=== PATIENT | male | born 1995 | race Native Hawaiian/Other Pacific Islander ===

== ENCOUNTER 2018-04-25 10:34 | Emergency (ER) | payer OTHER, SELFPAY ==
[2018-04-25 10:41] VITALS: BP 125/62; PULSE 81; RESP 16; TEMP 36.3; O2SAT 100
--- NOTE | 2018-04-25 10:58 | PC.NURSE ---
pt reports, pt has been in [facility] for 2 months, mission. pt developed generalized rash for one week, rtr from [facility] last , now rash is getting worst, treating with lotion. no resp distres noted.
--- NOTE | 2018-04-25 11:00 | PC.NURSE ---
red raised, some dry and crusty.
--- NOTE | 2018-04-25 11:05 | ED_ITS ---
HPI - Skin/Abscess/Foreign Bdy <Marly Vieira PA-C - Last Filed: 04/25/18 13:59> General Chief complaint: Skin/Abscess/Foreign Body Stated complaint: painful rash all over body Time Seen by Provider: 04/25/18 10:52 Source: patient Mode of arrival: ambulatory Limitations: no limitations History of Present Illness HPI narrative: This healthy 22-year-old male presents to ED due to persistent rash that started about a week ago. He states this started on his left wrist and lateral hand area, initially looked like dry skin, but has progressively worsened. He states that [place] at the time the rash started and he has been back here for just about a week and has continued to progress. He states that it can be somewhat hot and painful at night especially behind his knees, otherwise mostly itchy. He states that he feels weak and shaky off and on but has continued his usual work duties. He states he has not had any fever, chills, sweats, upper respiratory symptoms or other new problems aside from his skin feeling somewhat flushed at times. He states the rash does get worse with water exposure he thinks hot water especially. 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 He has not used any new medications or herbal products. He Did travel to some other places in the [place] such as [facility] and [place]. He states he does not think the rash has worsened overnight but medical was closed today so came here. He states he has felt a little bit more weak and tired off and on today Related Data Previous Rx's Medication Instructions Recorded prednisone 40 mg PO DAILY 5 Days #7 tab 04/25/18 Review of Systems <Marly Vieira PA-C - Last Filed: 04/25/18 13:59> Review of Systems All systems reviewed & are unremarkable except as noted in HPI and below PFSH <Marly Vieira PA-C - Last Filed: 04/25/18 13:59> Comment: uses vap pen Exam <Marly Vieira PA-C - Last Filed: 04/25/18 13:59> Narrative Exam Narrative: GENERAL APPEARANCE: Patient sitting comfortably, in no distress. EYES: PERRL, EOMI. ORAL CAVITY: Normal oropharynx. THROAT: Clear. NECK/THYROID: Neck supple, full range of motion, no cervical lymphadenopathy. LUNGS: Clear to auscultation bilaterally, no cough on exam. HEART: RRR without murmur, nl S1, S2, no S3 or S4. DERM: there are patches of dry skin on the lateral hands and wrists. There are no plaques. There are excoriated macules and papules on the neck, trunk, and a little bit on the arms. There is more uniform erythema in an irregular distribution on both medial and anterior thighs with some papules as well. There are no pustules or vesicles. Lesions spare the palms, feet, and ankles. Lesions on the R. anterior forearm look more typical of urticaria than opposite side Initial Vital Signs Initial Vital Signs: Vital Signs Temperature 97.4 F L 04/25/18 10:41 Pulse Rate 81 04/25/18 10:41 Respiratory Rate 16 04/25/18 10:41 Blood Pressure 125/62 04/25/18 10:41 Pulse Oximetry 100 04/25/18 10:41 <Sarah Guy DO - Last Filed: 04/26/18 07:31> Initial Vital Signs Initial Vital Signs: Vital Signs Temperature 97.4 F L 04/25/18 10:41 Pulse Rate 81 04/25/18 10:41 Respiratory Rate 16 04/25/18 10:41 Blood Pressure 125/62 04/25/18 10:41 Pulse Oximetry 100 04/25/18 10:41 Course <Marly Vieira PA-C - Last Filed: 04/25/18 13:59> Additional Information: patient has been deployed recently but no specific known exposures or contacts. He has changed soaps and detergents to allergen free. He believes up-to-date on vaccines but states he was deployed late so has to verify. He does not have any fever or other new symptoms with this rash such as facial swelling or dyspnea (aside from some malaise intermittently). Parts of it appears like urticaria, also probable contact dermatitis. Will start oral steroids and antihistamines, and advised follow-up with [facility] this week to determine whether any concerns about exposures in the specific areas where he was deployed, and to determine how long to continue steroid treatment. He is agreeable with this as well as plan to return if any acutely worsening symptoms such as dyspnea or facial swelling. Vital Signs - 8 hr 04/25/18 10:41 04/25/18 11:50 Temperature 97.4 F L Pulse Rate 81 84 Respiratory Rate 16 16 Blood Pressure 125/62 113/53 L Pulse Oximetry 100 100 <Sarah Guy DO - Last Filed: 04/26/18 07:31> Vital Signs - 8 hr 04/25/18 10:41 04/25/18 11:50 Temperature 97.4 F L Pulse Rate 81 84 Respiratory Rate 16 16 Blood Pressure 125/62 113/53 L Pulse Oximetry 100 100 Discharge Plan Departure Patient Disposition: Home Clinical Impression: Urticaria, Contact dermatitis Discharge Date/Time: 04/25/18 11:50 Interventions: ED Discharge Assessment Last Done: 04/25/18 11:50 Instructions: DI for Contact Dermatitis, DI for Hives Activity Restrictions/Additional Instructions: start the prednisone (steroid, to help calm down the immune reaction) as soon as you pick it up. Also start Zyrtec (cetirizine ) 10 mg 1-2 times daily to help with itching. At night, you can take Benadryl if you prefer which will also help itching/allergic reaction and can help you sleep. [facility] on Monday to assess your progress and determine how long you should take the steroids for and whether any other testing is needed Prescriptions: New prednisone 20 mg tablet 40 mg PO DAILY 5 Days Qty: 7 RF: 0 Referrals: [facility] [Provider Group] <Sarah Guy DO - Last Filed: 04/26/18 07:31> Cosign ED Attending Cosignature Attestation: I was immediately available in the department for consultation. Documentation has been reviewed. I agree with assessment and plan.
[2018-04-25 11:50] VITALS: BP 113/53; PULSE 84; RESP 16; O2SAT 100
== END 2018-04-25 11:50 | disposition home or self-care (01) ==
PROVIDERS: Emergency Provider Internal Medicine
DX: L50.9 Urticaria, unspecified (principal); L25.9 Unspecified contact dermatitis, unspecified cause
CPT/HCPCS: 99282

== ENCOUNTER 2018-06-04 12:22 | Emergency (ER) | payer OTHER, SELFPAY ==
[2018-06-04] VITALS (7 sets, daily range): BP systolic 106–127; BP diastolic 40–68; PULSE 72–82; RESP 10–18; TEMP 36.3; O2SAT 98–99
--- NOTE | 2018-06-04 12:58 | DI.RAD.S_ITS ---
PROCEDURE: XR CHEST 1V INDICATIONS: chest pain TECHNIQUE: One view of the chest was acquired. COMPARISON: None. FINDINGS: Surgical changes and devices: None. Lungs and pleura: No pleural effusions or pneumothorax. Lungs are clear. Mediastinum: Mediastinal contours appear normal. Heart size is normal. Bones and chest wall: No suspicious bony lesions. Overlying soft tissues appear unremarkable. IMPRESSION: Mildly reduced inspiratory line, source of chest pain is not seen. Dictated by: Rashad Vasquez M.D. on 06/04/2018 at 13:23 Approved by: Rashad Vasquez M.D. on 06/04/2018 at 13:24
[2018-06-04 13:05] LABS: Prothrombin Time 11.3 SECONDS (10.1-12.7)
[2018-06-04 13:07] LABS: PTT Partial Thromboplastin Tim 33 SECONDS (26.4-36.2)
[2018-06-04 13:12] LABS: Alanine Aminotransferase 42 IU/L (21-72); Albumin 4.5 g/dL (3.5-5.0); Albumin Globulin Ratio 1.5 (1.0-2.8); Alkaline Phosphatase 68 U/L (38-126); Aspartate Aminotransferase 38 IU/L (17-59); Bilirubin Total 0.7 mg/dL (0.2-1.3); Blood Urea Nitrogen 14 mg/dL (9-20); Carbon Dioxide 28 mmol/L (22-32); Chloride 103 mmol/L (98-107); Creatine Kinase 51 U/L (55-170); Estimated Glomerular Filt Rate > 60.0 mL/min (>60); Globulin 3.1 g/dL (1.7-4.1); Glucose 88 mg/dL (70-100); HEMOLYSIS < 15 (0-50); Lipase 58 U/L (23-300); Sodium 143 mmol/L (137-145); Total Protein 7.6 g/dL (6.3-8.2)
[2018-06-04 13:20] LABS: Add Manual Diff / Slide Review NO; Basophils Absolute Auto 100 /uL (0-100); Basophils Percent Auto 0.8 % (0-2); Eosinophils Absolute Auto 400 /uL (0-450); Eosinophils Percent Auto 3.9 % (2-4); Hematocrit 43.3 % (41-53); Hemoglobin 14.5 g/dL (13.5-17.5); Lymphocytes Absolute Auto 1500 /uL (1100-4500); Lymphocytes Percent Auto 16.6 % (25-40); Mean Corpuscular HGB Conc 33.6 % (30-36); Mean Corpuscular Hemoglobin 30.3 PG (26-34); Mean Corpuscular Volume 90.2 fL (80-100); Monocytes Absolute Auto 400 /uL (0-900); Monocytes Percent Auto 4.1 % (3-14); Neutrophils Absolute Auto 6800 /uL (1500-7000); Neutrophils Percent Auto 74.6 % (50-75); Platelet Count 280 X10^3/uL (150-400); Red Cell Distribution Width 12.6 % (11.6-14.8); White Blood Cell Count 9.1 X10^3/uL (4.5-11.0)
[2018-06-04 13:25] LABS: Troponin I < 0.012 ng/mL (0.01-0.034)
--- NOTE | 2018-06-04 13:55 | ED_ITS ---
HPI - Chest Pain General Chief Complaint: Chest Pain Stated Complaint: chest pain since about 3am and stomach pain Time Seen by Provider: 06/04/18 13:53 Source: patient Mode of arrival: ambulatory Limitations: no limitations History of Present Illness HPI narrative: This is a 22-year-old male comes to the emergency department with complaint of chest pain that woke him up from sleep at about 3:00 a.m.. He states sort of anterior chest a little bit to the left. Sort of throbs, it is a dull ache but gets sharper and more pointed when it waxes in intensity. Patient states that it sort of waxes and wanes but there does not seem to be any associated cause. Exertion does not make it worse, deep inspiration does not really seem to make it worse, patient has not had similar symptoms in the past. Patient states that he has felt a little short of breath but he states that started when he started developing a rash. He states that a [facility]ASS has been there since March. 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 He has not had any fevers. He had some vomiting overnight he has not had any since then. He has felt a little nauseated but not have any diarrhea. No constipation. No urinary issues. Had a little bit of belly some discomfort but that also is better. No black or blood stool but he does not check. Patient denies any swelling in his extremities other than at the axilla and posterior knees. History is unknown patient is adopted. He did spend time in [facility] until March. Related Data Home Medications Medication Instructions Recorded Confirmed Anti-Itching Cream 1 applic TOPICAL PRN PRN 06/04/18 06/04/18 Doxycycline 1 dose PO [id number] 06/04/18 06/04/18 hydroxyzine HCl 1 - 2 tab PO BEDTIME 06/04/18 06/04/18 loratadine 10 mg PO DAILY 06/04/18 06/04/18 prednisone 1 dose PO [id number] 06/04/18 06/04/18 ranitidine HCl 300 mg PO DAILY 06/04/18 06/04/18 Review of Systems Review of Systems ROS Unobtainable: All systems reviewed & are unremarkable except as noted in HPI and below Constitutional Denies chills, Denies fever(s), Denies lethargy and Denies weakness Cardiovascular Reports chest pain, Reports chest pain at rest, Denies diaphoresis, Denies syncope, Denies rapid heart rate, Denies edema, Denies irregular heart rhythm, Denies lightheadedness, Denies radiating jaw, neck or arm pain, Denies palpitations, Reports dyspnea (since March) and Denies orthopnea Respiratory Denies change in phlegm color, Denies chest congestion, Denies cough, Denies excessive phlegm production, Reports dyspnea (since March) and Denies wheezing Gastrointestinal Gastrointestinal: Denies abdominal pain, Denies melena, Denies hematochezia, Denies change in bowel habits, Denies diarrhea, Denies nausea and Denies vomiting Genitourinary Denies hematuria, Denies flank pain, Denies urinary incontinence and Denies urinary urgency Musculoskeletal Denies other (leg or calf pain) Integumentary/Breasts Reports rash Neurologic Denies syncope and Denies weakness Endocrine Denies palpitations Allergic/Immunologic Denies wheezing PFSH Social History other: Adopted Exam Narrative Exam Narrative: GEN: well nourished, well appearing male, alert and oriented x 3 , patient appears to be in mild distress. HEENT: Atraumatic, pupils are equal round reactive to light, extraocular movements are intact, nares are clear. HEART: Regular rate and rhythm without murmur, clicks, rubs. No carotid bruits , pulses are equal in upper and lower extremities LUNGS:Lungs clear to auscultation, no wheezes, rales, crackles, chest moves symmetrically ABD:bowel sounds normal, soft, non-tender, no guarding, rebound, rigidity, no masses noted, no hepatosplenomegaly :No CVA tenderness MSCL: Non-tender, no muscle atrophy, muscles strength 5/5 upper and lower extremities, full range of motion, normal gait NEURO:CN 2-12 intact, sensation normal. Initial Vital Signs Initial Vital Signs: Vital Signs Temperature 97.4 F L 06/04/18 12:29 Pulse Rate 72 06/04/18 12:29 Respiratory Rate 13 06/04/18 12:29 Blood Pressure 127/54 L 06/04/18 12:29 Pulse Oximetry 99 06/04/18 12:29 Scores PERC Score Age greater than or equal to 50 years: No Heart rate greater than or equal to 100 bpm: No Room Air O2 Sat less than 95%: No Unilateral leg swelling: No Recent trauma or surgery: No Hemoptysis: No Prior PE or DVT: No Hormone Use: No Total PERC Score: 0 Course Orders Ordered: ED Orders 06/04/18 12:32 EKG-12 Lead Stat 06/04/18 12:36 Complete Blood Count AUTO DIFF Stat Comprehensive Metabolic Panel Stat Lipase Stat Partial Thromboplastin Time Stat Prothrombin Time INR Stat Troponin & CK Cardiac Panel Stat 06/04/18 12:40 D Dimer Stat 06/04/18 12:58 XR chest 1V Stat Vital Signs - 8 hr 06/04/18 12:29 06/04/18 13:00 06/04/18 13:30 Temperature 97.4 F L Pulse Rate 72 77 82 Respiratory Rate 13 18 16 Blood Pressure 127/54 L Blood Pressure [Left Arm] 127/54 L 106/40 L Blood Pressure [Right Arm] 118/49 L Pulse Oximetry 99 98 98 06/04/18 14:00 06/04/18 14:30 06/04/18 15:04 Temperature Pulse Rate 79 73 72 Respiratory Rate 14 17 10 L Blood Pressure Blood Pressure [Left Arm] 114/58 L 122/57 L 119/51 L Blood Pressure [Right Arm] Pulse Oximetry 99 99 99 06/04/18 15:19 Temperature Pulse Rate 72 Respiratory Rate 16 Blood Pressure 119/68 Blood Pressure [Left Arm] Blood Pressure [Right Arm] Pulse Oximetry 99 MDM - Chest Pain Lab Data Attestation: I reviewed the patient's lab results. Result diagrams: 06/04/18 12:36 06/04/18 12:36 Lab Results 06/04/18 06/04/18 06/04/18 Range/Units 12:36 12:36 12:36 WBC 9.1 (4.5-11.0) X10^3/uL RBC 4.80 (4.5-5.9) X10^6/uL Hgb 14.5 (13.5-17.5) g/dL Hct 43.3 (41-53) % MCV 90.2 (80-100) fL MCH 30.3 (26-34) PG MCHC 33.6 (30-36) % RDW 12.6 (11.6-14.8) % Plt Count 280 (150-400) X10^3/uL Neut % (Auto) 74.6 (50-75) % Lymph % (Auto) 16.6 L (25-40) % [place] % (Auto) 4.1 (3-14) % Eos % (Auto) 3.9 (2-4) % Baso % (Auto) 0.8 (0-2) % Neut # (Auto) 6800 (3744-5632) /uL Lymph # (Auto) 1500 (3010-7150) /uL [place] # (Auto) 400 (0-900) /uL Eos # (Auto) 400 (0-450) /uL Baso # (Auto) 100 (0-100) /uL PT 11.3 (10.1-12.7) SECONDS INR 1.0 (0.9-1.3) APTT 33 (26.4-36.2) SECONDS D-Dimer (<230) ng/mL Sodium 143 (137-145) mmol/L Potassium 4.0 (3.4-5.1) mmol/L Chloride 103 (98-107) mmol/L Carbon Dioxide 28 (22-32) mmol/L BUN 14 (9-20) mg/dL Creatinine 1.00 (0.66-1.25) mg/dL Estimated GFR > 60.0 (>60) mL/min BUN/Creatinine Ratio 14.0 (6-22) Glucose 88 (70-100) mg/dL Calcium 9.0 (8.4-10.2) mg/dL Total Bilirubin 0.7 (0.2-1.3) mg/dL AST 38 (17-59) IU/L ALT 42 (21-72) IU/L Alkaline Phosphatase 68 (38-126) U/L Total Creatine Kinase 51 L (55-170) U/L CK-MB (CK-2) TNP CK-MB (CK-2) Rel Index TNP Troponin I < 0.012 (0.01-0.034) ng/mL Total Protein 7.6 (6.3-8.2) g/dL Albumin 4.5 (3.5-5.0) g/dL Globulin 3.1 (1.7-4.1) g/dL Albumin/Globulin Ratio 1.5 (1.0-2.8) Lipase 58 (23-300) U/L 01/14/19 Range/Units 12:40 WBC (4.5-11.0) X10^3/uL RBC (4.5-5.9) X10^6/uL Hgb (13.5-17.5) g/dL Hct (41-53) % MCV (80-100) fL MCH (26-34) PG MCHC (30-36) % RDW (11.6-14.8) % Plt Count (150-400) X10^3/uL Neut % (Auto) (50-75) % Lymph % (Auto) (25-40) % [place] % (Auto) (3-14) % Eos % (Auto) (2-4) % Baso % (Auto) (0-2) % Neut # (Auto) (3225-4910) /uL Lymph # (Auto) (5917-8519) /uL [place] # (Auto) (0-900) /uL Eos # (Auto) (0-450) /uL Baso # (Auto) (0-100) /uL PT (10.1-12.7) SECONDS INR (0.9-1.3) APTT (26.4-36.2) SECONDS D-Dimer < 200 (<230) ng/mL Sodium (137-145) mmol/L Potassium (3.4-5.1) mmol/L Chloride (98-107) mmol/L Carbon Dioxide (22-32) mmol/L BUN (9-20) mg/dL Creatinine (0.66-1.25) mg/dL Estimated GFR (>60) mL/min BUN/Creatinine Ratio (6-22) Glucose (70-100) mg/dL Calcium (8.4-10.2) mg/dL Total Bilirubin (0.2-1.3) mg/dL AST (17-59) IU/L ALT (21-72) IU/L Alkaline Phosphatase (38-126) U/L Total Creatine Kinase (55-170) U/L CK-MB (CK-2) CK-MB (CK-2) Rel Index Troponin I (0.01-0.034) ng/mL Total Protein (6.3-8.2) g/dL Albumin (3.5-5.0) g/dL Globulin (1.7-4.1) g/dL Albumin/Globulin Ratio (1.0-2.8) Lipase (23-300) U/L Imaging Data Chest x-ray: Radiologist's impression: [address] [address] XRay Report Signed Patient: Khoa Abraham MR#: [id number] : 1995 Acct:[id number] Age/Sex: 22 / M Date of Service: 06/04/18 Loc: ED Accession Number: [id number] Procedure: XR chest 1V Ordering Provider: Bridgette Mills D.O. PROCEDURE: XR CHEST 1V INDICATIONS: chest pain TECHNIQUE: One view of the chest was acquired. COMPARISON: None. FINDINGS: Surgical changes and devices: None. Lungs and pleura: No pleural effusions or pneumothorax. Lungs are clear. Mediastinum: Mediastinal contours appear normal. Heart size is normal. Bones and chest wall: No suspicious bony lesions. Overlying soft tissues appear unremarkable. IMPRESSION: Mildly reduced inspiratory line, source of chest pain is not seen. Dictated by: Rashad Vasquez M.D. on 06/04/2018 at 13:23 Approved by: Rashad Vasquez M.D. on 06/04/2018 at 13:24 ECG Data Attestation: I personally reviewed and interpreted this ECG as follows: Prior ECG tracings: not available for review Interpretation: Sinus rhythm with a ventricular rate of 77 and a P are interval of 146, QRS of 114 and QTC of 410. No clear ST changes although patient has some motion artifact in 2 3 and AVF. EKG was repeated. [facility] Narrative Medical decision making narrative: Has chest pain since about 3:00 a.m. as well as a little bit of stomach pain. All lab work is in negative for elevated troponin, EKG does not show any major changes. I am able to rule out with PERC and D-dimer. Patient is taking multiple medications including doxycycline which could upset his stomach he has not tried any Tylenol or ibuprofen for discomfort. He has felt for rash but this appears to be a separate from his current issues. Rash started in March he has an appointment with Dermatology. Recommended to return for follow-up with primary care. Discharge Plan Departure Patient Disposition: Home Clinical Impression: Chest pain, Rash Discharge Date/Time: 01/14/19 15:19 Interventions: ED Discharge Assessment Last Done: 06/04/18 15:19 Instructions: DI for Atypical Chest Pain Activity Restrictions/Additional Instructions: Follow-up with your primary care provider in next 2-3 days for recheck. Follow-up at your scheduled dermatology appointment. Continue your medications as prescribed. Some of these medications in combination could make you feel nauseated. Return to the emergency department for persistent fevers, rapidly worsening symptoms, passing out, suddenly severe chest pain or pressure, persistent vomiting, black or bloody stools or other new or concerning symptoms. Prescriptions: No Action Anti-Itching Cream 1 applic Topical PRN PRN (Reason: Itching) RF: 0 ranitidine HCl 150 mg Tablet 300 mg PO DAILY RF: 0 loratadine 10 mg Tablet 10 mg PO DAILY RF: 0 Doxycycline 1 dose PO [id number] RF: 0 hydroxyzine HCl 1 - 2 tab PO BEDTIME RF: 0 prednisone 1 dose PO [id number] RF: 0
[2018-06-04 14:09] LABS: D Dimer < 200 ng/mL (<230)
== END 2018-06-04 15:19 | disposition home or self-care (01) ==
PROVIDERS: Emergency Provider Emergency Medicine
DX: R07.9 Chest pain, unspecified (principal); R21 Rash and other nonspecific skin eruption
CPT/HCPCS: 36591; 71045; 80053; 82550; 83690; 84484; 85025; 85379; 85610; 85730; 93005; 93010; 99283; 99285